=== PATIENT | female | born 1995 | race Two or more races ===

== ENCOUNTER 2017-11-10 15:34 | Emergency (ER) | payer SELFPAY ==
[~2017-11-10] VITALS: Ht 160 cm; Wt 54.4 kg
[2017-11-10 15:40] VITALS: BP 117/72
[2017-11-10] MEDS ORDERED: IBUPROFEN 600 MG TABLET PO ONE (15:55)
[2017-11-10] MEDS: IBUPROFEN 600 MG TABLET PO ONE (16:00)
== END 2017-11-10 16:05 | disposition home or self-care (01) ==
LOC: ER 15:36
DX: L03.113 Cellulitis of right upper limb (principal)
CPT/HCPCS: 99283; A4606; Z7610

== ENCOUNTER 2017-11-22 16:09 | Emergency (ER) | payer SELFPAY ==
[~2017-11-22] VITALS: Ht 165.1 cm; Wt 60.8 kg
--- NOTE | 2017-11-22 16:55 | NUR ---
PATIENT TO ED DT LOWER ABDOMINAL PAIN, 4/10, NON RADIATING WITH NAUSEA AND VOMITING X 2 DAYS. PATIENT IS NOT IN DISTRESS. SKIN IS WARM TO TOUCH AND NON DIAPHORETIC. AFEBRILE. VSS
[2017-11-22] MEDS ORDERED: ONDANSETRON 4 MG TAB.RAPDIS PO ONE (17:30)
[2017-11-22] MEDS ORDERED: IBUPROFEN 600 MG TABLET PO ONE ×2 (17:30→17:41)
[2017-11-22 17:34] LABS: APPEARANCE,URINE Clear (CLEAR); BILIRUBIN,URINE Negative (NEGATIVE); BLOOD, URINE Negative Ery/uL (NEGATIVE); COLOR,URINE Yellow (YELLOW); KETONES,URINE Negative (NEGATIVE); LEUKOCYTE ESTERASE ,URINE Negative (NEGATIVE); NITRITE, URINE Negative (NEGATIVE); PROTEIN,URINE Negative (NEGATIVE); UGLUCOSE Negative (NEGATIVE); UROBILINOGEN,URINE 0.2 EU/dL (0.2)
[2017-11-22] MEDS ORDERED: ONDANSETRON 4 MG TAB.RAPDIS ONE (17:42)
[2017-11-22 17:46] LABS: BASOPHILS # (AUTO) 0.1 /CMM (0.0-0.2); NEUTROPHILS # (AUTO) 4.5 /CMM (1.8-8.9)
[2017-11-22 17:51] LABS: BASOPHILS % (AUTO) 0.9 % (0.0-2.0); HEMATOCRIT 40 % (33-45); HEMOGLOBIN 13.6 g/dL (11.5-14.8); LYMPHOCYTES # (AUTO) 2.6 /CMM (0.8-4.8); LYMPHOCYTES % (AUTO) 33.3 % (20.0-44.0); MEAN CORPUSCULAR HEMOGLOBIN 28 PG (26.0-33.0); MEAN CORPUSCULAR HGB CONC 34 g/dl (31.0-36.0); MEAN CORPUSCULAR VOLUME 82 fL (82-100); MONOCYTES # (AUTO) 0.4 /CMM (0.1-1.30); MONOCYTES % (AUTO) 5.4 % (2.0-12.0); NEUTROPHILS % (AUTO) 58.4 % (43.0-81.0); PLATELET COUNT (AUTO) 180 /CMM (150-450); RDW COEFFICIENT OF VARIATION 11.6 (11.5-15.0); RED BLOOD CELL COUNT(AUTO) 4.93 MIL/uL (4.0-5.2); WHITE BLOOD COUNT (AUTO) 7.8 K/uL (4.3-11.0)
[2017-11-22 17:55] LABS: CALCIUM, SERUM 8.9 mg/dL (8.5-10.1); CREATININE 0.6 mg/dL (0.6-1.3); POTASSIUM 3.4 mmol/L (3.5-5.1)
[2017-11-22 18:01] LABS: ALBUMIN 3.5 g/dL (3.4-5.0); BILIRUBIN,DIRECT 0.1 mg/dL (0.0-0.2); BILIRUBIN,TOTAL 0.3 mg/dL (0.2-1.0); TOTAL PROTEIN, SERUM 7.2 g/dL (6.4-8.2)
[2017-11-22 18:23] VITALS: BP 122/86
--- NOTE | 2017-11-22 18:23 | NUR ---
patient denies nausea at this time,. vss
--- NOTE | 2017-11-22 18:23 | NUR ---
Patient discharged to home in stable condition. Written and verbal after care instructions given. Patient verbalizes understanding of instruction.
== END 2017-11-22 18:25 | disposition home or self-care (01) ==
LOC: ER 16:14
DX: R11.2 Nausea with vomiting, unspecified (principal); R19.7 Diarrhea, unspecified; R10.30 Lower abdominal pain, unspecified
CPT/HCPCS: 36415; 80048; 80076; 81001; 84703; 85025; 99284; A4606; Q0162; Z7610; 81000-TC

== ENCOUNTER 2018-03-30 14:08 | Emergency (ER) | payer SELFPAY ==
[~2018-03-30] VITALS: Ht 160 cm; Wt 56.2 kg
--- NOTE | 2018-03-30 14:25 | NUR ---
PT BIB SELF C/O FLU LIKE SYMPTOMS, PT IS AAOX4, NOT IN RESPIRATORY DISTRESS, V/S STABLE, KEPT RESTED AND COMFORTABLE.
--- NOTE | 2018-03-30 14:29 | NUR ---
DR. BUTLER AT BEDSIDE FOR EVAL.
--- NOTE | 2018-03-30 14:33 | NUR ---
LABS DRAWNED AND SENT TO LAB. AWAITING RESULTS.
[2018-03-30] MEDS ORDERED: METOCLOPRAMIDE HCL 10 MG/2 ML VIAL ONE (14:44)
[2018-03-30 14:52] LABS: APPEARANCE,URINE Clear (CLEAR); BASOPHILS % (AUTO) 0.4 % (0.0-2.0); BILIRUBIN,URINE SMALL (NEGATIVE); BLOOD, URINE Trace-lysed Ery/uL (NEGATIVE); COLOR,URINE Yellow (YELLOW); EOSINOPHILS % (AUTO) 1.4 % (0.0-6.0); HEMATOCRIT 38 % (33-45); HEMOGLOBIN 12.6 g/dL (11.5-14.8); KETONES,URINE Trace (NEGATIVE); LEUKOCYTE ESTERASE ,URINE Small (NEGATIVE); LYMPHOCYTES # (AUTO) 2.6 /CMM (0.8-4.8); LYMPHOCYTES % (AUTO) 20.7 % (20.0-44.0); MEAN CORPUSCULAR HGB CONC 34 g/dl (31.0-36.0); MEAN CORPUSCULAR VOLUME 84 fL (82-100); MONOCYTES # (AUTO) 1.2 /CMM (0.1-1.30); MONOCYTES % (AUTO) 9.8 % (2.0-12.0); NEUTROPHILS # (AUTO) 8.4 /CMM (1.8-8.9); NEUTROPHILS % (AUTO) 67.7 % (43.0-81.0); NITRITE, URINE Negative (NEGATIVE); PLATELET COUNT (AUTO) 160 /CMM (150-450); PROTEIN,URINE 30 mg/dl (NEGATIVE); UGLUCOSE Negative (NEGATIVE); UROBILINOGEN,URINE 0.2 EU/dL (0.2); WHITE BLOOD COUNT (AUTO) 12.4 K/uL (4.3-11.0)
[2018-03-30 14:59] LABS: CALCIUM, SERUM 8.8 mg/dL (8.5-10.1); CREATININE 0.5 mg/dL (0.6-1.3); POTASSIUM 3.2 mmol/L (3.5-5.1)
[2018-03-30] MEDS ORDERED: METOCLOPRAMIDE HCL 10 MG/2 ML VIAL IV ONE (15:00)
[2018-03-30] MEDS ORDERED: IV NS 0.9% 1,000 ML BAG IV ONE (15:00)
[2018-03-30 15:02] LABS: BACTERIA,URINE Moderate /HPF (None Seen); RBC,URINE 0-2 /HPF (0-2); SQUAMOUS EPITHELIAL CELL,UR Few /HPF (None Seen)
--- NOTE | 2018-03-30 15:10 | NUR ---
IV removed. Catheter intact and site benign. Pressure and 4x4 applied to site. No bleeding noted. Patient discharged to home in stable condition. Written and verbal after care instructions given. Patient verbalizes understanding of instruction.
[2018-03-30 17:15] VITALS: BP 121/71
== END 2018-03-30 17:15 | disposition home or self-care (01) ==
LOC: ER 14:11
DX: O99.511 Diseases of the respiratory system complicating pregnancy, first trimester (principal); O23.41 Unspecified infection of urinary tract in pregnancy, first trimester; Z3A.01 Less than 8 weeks gestation of pregnancy
CPT/HCPCS: 36415; 80048; 81001; 85025; 87086; 87804 ×2; 96374; 99283; A4606; J2765; J7030; Z7610; 81000-TC; 87400